=== PATIENT | male | born 1960 | race Two or more races ===

== ENCOUNTER 2025-02-05 10:15 | Inpatient (IN) | payer OTHER ==
[~2025-02-05] VITALS: Ht 170.2 cm; Wt 75.7 kg
[2025-02-05] MEDS ORDERED: LOSARTAN POTAS100 MG PO (11:35)
[2025-02-05] MEDS ORDERED: PRILOSEC OTC20 MG PO (11:36)
[2025-02-05] MEDS ORDERED: LEVOTHYROXINE25 MCG (11:36)
[2025-02-05] MEDS ORDERED: TOPROL XL100 M1 PO (11:37)
[2025-02-05] MEDS ORDERED: LIPITOR40 M1 PO (11:37)
[2025-02-05] MEDS ORDERED: PEPCID40 MG PO (11:38)
[2025-02-05] MEDS ORDERED: PROSCAR5 MG PO (11:38)
[2025-02-05] MEDS ORDERED: TAMS0.4C PO (11:38)
[2025-02-05] MEDS ORDERED: ONDANSETRON HCL 2 MG/ML VIAL ONE (12:19)
[2025-02-05] MEDS ORDERED: CEFTRIAXONE SODIUM 2,000 MG VIAL ONE (12:20)
[2025-02-05] MEDS ORDERED: ONDANSETRON HCL 2 MG/ML VIAL IV ONE (12:30)
[2025-02-05] MEDS ORDERED: CEFTRIAXONE SODIUM 2,000 MG VIAL IV ONE (12:30)
[2025-02-05] MEDS ORDERED: 0.9 % SODIUM CHLORIDE 1,000 ML IV SCH ×2 (12:30→21:45)
[2025-02-05 13:06] LABS: BASO % 0.3 % (0.1-1.2); EOS # 0.01 (0.04-0.54); EOS % 0.1 % (0.7-7.0); HEMOGLOBIN 9.7 g/dL (13.7-17.5); LYMPH # 1.14 (1.18-3.74); LYMPH % 7.6 % (19.3-53.1); MEAN CORPUSCULAR HEMOGLOBIN 25.6 pg (25.6-32.2); MONO # 1.03 (0.24-0.82); MONO % 6.9 % (4.7-12.5); NEUT # 12.64 (1.56-6.13); NEUT % 84.6 % (34.0-71.1); PLATELET COUNT 451 K/uL (163-369); RED BLOOD COUNT 3.79 M/uL (4.63-6.08); RED CELL DISTRIBUTION WIDTH 15.9 % (11.6-14.4)
[2025-02-05 14:08] LABS: ALBUMIN 3.2 gm/dL (3.4-5.0); BILIRUBIN TOTAL 0.72 mg/dL (0.3-1.2); CREATININE SERUM 1.91 mg/dL (0.70-1.30); GFR 35.43; GLOBULINA 4.6 G/DL (2.4-3.5); POTASSIUM 4.29 mEq/L (3.5-5.1); TOTAL PROTEIN 7.8 gm/dL (6.4-8.2)
[2025-02-05 16:21] LABS: PH,URINE 5.5 (5.0-8.0); URINE APPEARANCE Turbid; URINE BILIRRUBIN Negative (NEGATIVE); URINE BLOOD Large; URINE COLOR Dark Yellow; URINE GLUCOSE Negative (NEGATIVE); URINE KETONE Trace (NEGATIVE); URINE LEUKOCYTE Large; URINE NITRATE Negative
[2025-02-05 16:24] LABS: URINE CAST 11.34 uL (0.0-1.40); URINE EPITHELIAL CELLS 15.3 uL (0.0-38.8); URINE RBC 398.1 uL (0.0-20.8); URINE WBC 4451.3 uL (0.0-23.2)
[2025-02-05 18:05] LABS: URINE BACTERIA > 9821.5 uL (0.0-1933); URINE PROTEIN 100 (NEGATIVE)
[2025-02-05] MEDS ORDERED: CEFTRIAXONE SODIUM 2,000 MG in 0.9 % SODIUM CHLORIDE 100 ML IV SCH (21:59)
[2025-02-05] MEDS ORDERED: ONDANSETRON HCL 4 MG in 0.9 % SODIUM CHLORIDE 50 ML IV PRN (22:00)
[2025-02-05] MEDS ORDERED: ACETAMINOPHEN 500 MG GEL..CAP PO PRN (22:00)
[2025-02-05] MEDS ORDERED: 0.9 % SODIUM CHLORIDE 1,000 ML IV ONE (22:15)
[2025-02-06 04:00] VITALS: BP 112/65; O2SAT 98
[2025-02-06 04:49] LABS: PHOSPHOROUS 3.5 mg/dL (2.5-4.9)
[2025-02-06 04:52] LABS: C-REACTIVE PROTEIN 14.1 MG/DL (0.00-0.29); MAGNESIUM 1.4 mg/dL (1.8-2.4)
[2025-02-06 04:56] LABS: PARTIAL THROMBOPLASTIN TIME 28.8 SECONDS (22.0-34.0)
[2025-02-06 05:01] LABS: INR 1.05; PROTHROMBIN TIME 11.4 SECONDS (9.0-11.5)
[2025-02-06 05:29] LABS: COVID-19 AG NEGATIVE (NEGATIVE)
[2025-02-06] MEDS ORDERED: LEVOTHYROXINE SODIUM 25 MCG TABLET PO SCH (06:00)
[2025-02-06] MEDS ORDERED: TAMSULOSIN HCL 0.4 MG CAP PO SCH (09:00)
[2025-02-06] MEDS ORDERED: FINASTERIDE 5 MG TABLET PO SCH (09:00)
[2025-02-06] MEDS ORDERED: ATORVASTATIN CALCIUM 40 MG TABLET PO SCH (09:00)
[2025-02-06 09:41] VITALS: BP 125/90; O2SAT 98
[2025-02-06 17:48] VITALS: BP 142/79
[2025-02-07 01:28] VITALS: BP 111/62
[2025-02-07 07:22] LABS: ALBUMIN 2.9 gm/dL (3.4-5.0); BILIRUBIN TOTAL 0.5 mg/dL (0.3-1.2); CALCIUM 8.2 mg/dL (8.5-10.1); CREATININE SERUM 1.58 mg/dL (0.70-1.30); GFR 44.1; GLOBULINA 3.9 G/DL (2.4-3.5); POTASSIUM 4.35 mEq/L (3.5-5.1); TOTAL PROTEIN 6.8 gm/dL (6.4-8.2)
[2025-02-07 08:37] VITALS: BP 136/81; O2SAT 96
[2025-02-07] MEDS ORDERED: PROMETHAZINE HCL 25 MG/ML AMPUL IV PRN (14:15)
[2025-02-07] MEDS ORDERED: KETOROLAC TROMETHAMINE 30 MG VIAL IM PRN (14:15)
[2025-02-07] MEDS ORDERED: SIMETHICONE 125 MG CAPSULE PO PRN (14:15)
[2025-02-07] MEDS ORDERED: MORPHINE SULFATE 4 MG/ML CARTRIDGE IV PRN (14:30)
[2025-02-07] MEDS ORDERED: FAMOTIDINE/PF 20 MG in 0.9 % SODIUM CHLORIDE 100 ML IV SCH (17:00)
[2025-02-07 18:48] VITALS: BP 108/66
[2025-02-07 23:11] LABS: ALBUMIN 2.4 gm/dL (3.4-5.0); BILIRUBIN TOTAL 0.58 mg/dL (0.3-1.2); CALCIUM 7.8 mg/dL (8.5-10.1); CREATININE SERUM 1.89 mg/dL (0.70-1.30); GLOBULINA 3.4 G/DL (2.4-3.5); POTASSIUM 3.96 mEq/L (3.5-5.1); TOTAL PROTEIN 5.8 gm/dL (6.4-8.2)
[2025-02-07 23:15] LABS: GFR 35.86
[2025-02-08 01:10] VITALS: BP 96/62
[2025-02-08 08:33] LABS: BASO % 0.2 % (0.1-1.2); EOS # 0.05 (0.04-0.54); EOS % 0.5 % (0.7-7.0); HEMATOCRIT 29.1 % (40.1-51.0); HEMOGLOBIN 9.1 g/dL (13.7-17.5); LYMPH # 0.49 (1.18-3.74); LYMPH % 4.7 % (19.3-53.1); MEAN CORPUSCULAR HEMOGLOBIN 25.5 pg (25.6-32.2); MONO % 2.9 % (4.7-12.5); NEUT # 9.48 (1.56-6.13); NEUT % 91.1 % (34.0-71.1); PLATELET COUNT 305 K/uL (163-369); RED BLOOD COUNT 3.57 M/uL (4.63-6.08); RED CELL DISTRIBUTION WIDTH 16.4 % (11.6-14.4)
[2025-02-08 09:11] VITALS: BP 137/77; O2SAT 94
[2025-02-08 09:14] LABS: ALBUMIN 2.5 gm/dL (3.4-5.0); BILIRUBIN TOTAL 0.59 mg/dL (0.3-1.2); CALCIUM 7.9 mg/dL (8.5-10.1); CREATININE SERUM 2.08 mg/dL (0.70-1.30); GFR 32.11; GLOBULINA 3.4 G/DL (2.4-3.5); POTASSIUM 4.24 mEq/L (3.5-5.1); TOTAL PROTEIN 5.9 gm/dL (6.4-8.2)
[2025-02-08 09:18] LABS: PROSTATIC SPECIFIC ANTIGEN 5.62 NG/ML (0.010-4.00)
[2025-02-08] MEDS ORDERED: MEROPENEM 500 MG/VIAL VIAL IV SCH (13:00)
[2025-02-08 16:00] VITALS: BP 186/97; O2SAT 97
[2025-02-08 20:41] VITALS: BP 95/60
[2025-02-09 00:59] VITALS: BP 92/58
[2025-02-09 06:35] VITALS: BP 155/851; O2SAT 96
[2025-02-09 09:00] VITALS: BP 97/66; O2SAT 96
[2025-02-09 09:44] LABS: ALBUMIN 2.4 gm/dL (3.4-5.0); CALCIUM 7.6 mg/dL (8.5-10.1); CREATININE SERUM 2.39 mg/dL (0.70-1.30); GFR 27.35; POTASSIUM 4.41 mEq/L (3.5-5.1)
[2025-02-09 16:00] VITALS: BP 122/65; O2SAT 97
[2025-02-09 18:42] LABS: INFLUENZA A AG NEGATIVE (NEGATIVE); INFLUENZA B AG NEGATIVE (NEGATIVE)
[2025-02-10 01:25] VITALS: BP 125/87
[2025-02-10] MEDS ORDERED: ENOXAPARIN SODIUM 30 MG/0.3 ML SYRINGE SUBCUTANEO SCH (09:00)
[2025-02-10 09:12] VITALS: BP 136/89; O2SAT 97
[2025-02-10] MEDS ORDERED: MORPHINE SULFATE 4 MG/ML CARTRIDGE IV PRN (10:15)
[2025-02-10 10:53] LABS: BASO % 0.2 % (0.1-1.2); EOS # 0.08 (0.04-0.54); EOS % 0.4 % (0.7-7.0); HEMATOCRIT 27.8 % (40.1-51.0); LYMPH # 1.47 (1.18-3.74); MEAN CORPUSCULAR HEMOGLOBIN 25.2 pg (25.6-32.2); MONO # 1.18 (0.24-0.82); MONO % 6.4 % (4.7-12.5); NEUT # 15.43 (1.56-6.13); NEUT % 84.3 % (34.0-71.1); PLATELET COUNT 283 K/uL (163-369); RED BLOOD COUNT 3.45 M/uL (4.63-6.08); RED CELL DISTRIBUTION WIDTH 17.2 % (11.6-14.4)
[2025-02-10 10:56] LABS: HEMOGLOBIN 8.7 g/dL (13.7-17.5)
[2025-02-10 11:22] LABS: CALCIUM 8.2 mg/dL (8.5-10.1); CREATININE SERUM 2.08 mg/dL (0.70-1.30); GFR 32.11; POTASSIUM 4.41 mEq/L (3.5-5.1)
[2025-02-10 17:17] VITALS: BP 157/93; O2SAT 93
[2025-02-11 00:55] VITALS: BP 109/78; O2SAT 98
[2025-02-11 09:23] VITALS: BP 144/99; O2SAT 95
[2025-02-11] MEDS ORDERED: FAMOtidine 20 MG TABLET PO SCH (17:00)
[2025-02-11 17:56] VITALS: BP 155/93
[2025-02-12 03:00] VITALS: BP 132/89; O2SAT 95
[2025-02-12 08:00] VITALS: BP 170/94
[2025-02-12 10:31] LABS: CALCIUM 7.7 mg/dL (8.5-10.1); CREATININE SERUM 1.76 mg/dL (0.70-1.30); GFR 38.94; POTASSIUM 4.03 mEq/L (3.5-5.1)
[2025-02-12 10:36] LABS: BASO % 0.3 % (0.1-1.2); EOS # 0.18 (0.04-0.54); EOS % 1.4 % (0.7-7.0); LYMPH % 9.4 % (19.3-53.1); MEAN CORPUSCULAR HEMOGLOBIN 25.4 pg (25.6-32.2); MONO # 1.01 (0.24-0.82); MONO % 7.9 % (4.7-12.5); NEUT # 10.01 (1.56-6.13); NEUT % 78.9 % (34.0-71.1); PLATELET COUNT 305 K/uL (163-369); RED BLOOD COUNT 3.03 M/uL (4.63-6.08); RED CELL DISTRIBUTION WIDTH 17.4 % (11.6-14.4)
[2025-02-12 11:03] LABS: HEMATOCRIT 24.3 % (40.1-51.0)
[2025-02-12 11:04] LABS: HEMOGLOBIN 7.7 g/dL (13.7-17.5)
[2025-02-12] MEDS ORDERED: SODIUM CHLORIDE 0.45 % 1,000 ML IV SCH (15:15)
[2025-02-12 19:07] VITALS: BP 170/92
[2025-02-13 03:54] VITALS: BP 148/87
[2025-02-13 08:46] VITALS: BP 163/100; O2SAT 98
[2025-02-13 10:14] LABS: BASO % 0.4 % (0.1-1.2); EOS # 0.32 (0.04-0.54); EOS % 2.4 % (0.7-7.0); HEMATOCRIT 28.5 % (40.1-51.0); HEMOGLOBIN 9.1 g/dL (13.7-17.5); LYMPH # 1.96 (1.18-3.74); LYMPH % 14.7 % (19.3-53.1); MEAN CORPUSCULAR HEMOGLOBIN 26.1 pg (25.6-32.2); MONO # 1.33 (0.24-0.82); NEUT # 9.28 (1.56-6.13); NEUT % 69.8 % (34.0-71.1); PLATELET COUNT 386 K/uL (163-369); RED BLOOD COUNT 3.49 M/uL (4.63-6.08)
[2025-02-13] MEDS ORDERED: IOVERSOL 320 MG/ML - 50 ML VIAL IV ONE (13:01)
[2025-02-13] MEDS ORDERED: CHLORHEXIDINE GLUCONATE 120 ML BOTTLE TOP ONE (13:03)
[2025-02-13] MEDS ORDERED: hydrALAZINE HCL 20 MG VIAL ONE (14:02)
[2025-02-13 18:51] VITALS: BP 136/84; O2SAT 97
[2025-02-14] VITALS: BP 120/77; O2SAT 95
[2025-02-14 08:10] VITALS: BP 153/84
[2025-02-14 20:30] LABS: ob NEGATIVE (NEGATIVE)
[2025-02-15 02:56] VITALS: BP 143/80; O2SAT 97
[2025-02-15 08:01] VITALS: BP 164/86
[2025-02-15 18:20] VITALS: BP 153/101; O2SAT 98
[2025-02-15] MEDS ORDERED: HYDROCHLOROTHIAZIDE 12.5 MG CAPSULE PO STA (18:43)
[2025-02-15] MEDS ORDERED: HYDROCHLOROTHIAZIDE 12.5 MG CAPSULE PO ONE (18:44)
[2025-02-15] MEDS ORDERED: LOSARTAN POTASSIUM 50 MG TABLET PO ONE (18:44)
[2025-02-15] MEDS ORDERED: LOSARTAN POTASSIUM 100 MG TABLET PO SCH (18:45)
[2025-02-15] MEDS ORDERED: METOPROLOL SUCCINATE 100 MG TAB.SR.24H PO SCH (21:00)
[2025-02-15 22:47] VITALS: BP 150/80
[2025-02-16 01:40] VITALS: BP 152/81; O2SAT 98
[2025-02-16] MEDS ORDERED: HYDROCHLOROTHIAZIDE 12.5 MG CAPSULE PO SCH (09:00)
[2025-02-16 09:01] VITALS: BP 157/93
[2025-02-16 17:00] VITALS: BP 157/92; O2SAT 97
[2025-02-17 01:51] VITALS: BP 123/70; O2SAT 98
[2025-02-17 09:10] VITALS: BP 162/98; O2SAT 97
[2025-02-17 13:21] LABS: BASO % 0.4 % (0.1-1.2); EOS # 0.29 (0.04-0.54); EOS % 3.8 % (0.7-7.0); HEMATOCRIT 32.7 % (40.1-51.0); HEMOGLOBIN 10.3 g/dL (13.7-17.5); LYMPH # 1.79 (1.18-3.74); LYMPH % 23.2 % (19.3-53.1); MONO # 0.57 (0.24-0.82); MONO % 7.4 % (4.7-12.5); NEUT # 4.94 (1.56-6.13); PLATELET COUNT 633 K/uL (163-369); RED BLOOD COUNT 3.96 M/uL (4.63-6.08); RED CELL DISTRIBUTION WIDTH 16.9 % (11.6-14.4)
[2025-02-17 13:59] LABS: ALBUMIN 2.6 gm/dL (3.4-5.0); BILIRUBIN TOTAL 0.41 mg/dL (0.3-1.2); CALCIUM 8.1 mg/dL (8.5-10.1); CREATININE SERUM 0.96 mg/dL (0.70-1.30); GFR 78.37; GLOBULINA 3.9 G/DL (2.4-3.5); POTASSIUM 4.06 mEq/L (3.5-5.1); TOTAL PROTEIN 6.5 gm/dL (6.4-8.2)
[2025-02-17 16:50] VITALS: BP 134/77; O2SAT 95
[2025-02-18 00:56] VITALS: BP 149/83
[2025-02-18 09:15] VITALS: BP 132/99; O2SAT 97
== END 2025-02-18 13:13 | disposition home or self-care (01) | DRG 660 ==
LOC: ER 10:48 → SEC-K 22:20 → MEDJ 22:20
PROVIDERS: General Practice; Internal Medicine; Internal Medicine Nephrology; Student in an Organized Health Care Education/Training Program; Urology; ADMIT Student in an Organized Health Care Education/Training Program; ATTEND Student in an Organized Health Care Education/Training Program
PROC: BW21ZZZ Computerized Tomography (CT Scan) of Abdomen and Pelvis (ICD-10-PCS; 2025-02-05)
PROC: 8E0ZXY6 Isolation (ICD-10-PCS; 2025-02-08)
PROC: BW21ZZZ Computerized Tomography (CT Scan) of Abdomen and Pelvis (ICD-10-PCS; 2025-02-12)
PROC: 30233N1 Transfusion of Nonautologous Red Blood Cells into Peripheral Vein, Percutaneous Approach (ICD-10-PCS; 2025-02-13)
PROC: 0T778DZ Dilation of Left Ureter with Intraluminal Device, Via Natural or Artificial Opening Endoscopic (ICD-10-PCS; principal; 2025-02-13 16:00)
DX: N13.2 Hydronephrosis with renal and ureteral calculous obstruction (principal); C64.9 Malignant neoplasm of unspecified kidney, except renal pelvis; N39.0 Urinary tract infection, site not specified; D64.89 Other specified anemias; I10 Essential (primary) hypertension; E03.9 Hypothyroidism, unspecified; B96.20 Unspecified Escherichia coli [E. coli] as the cause of diseases classified elsewhere

== ENCOUNTER 2025-03-06 18:32 | Inpatient (IN) | payer OTHER ==
[~2025-03-06] VITALS: Ht 170.2 cm; Wt 74.8 kg
[~2025-03-06 18:32] MED LIST: LEVOTHYROXINE25 MCG; LIPITOR40 M1 PO; LOSARTAN POTAS100 MG PO; PEPCID40 MG PO; PRILOSEC OTC20 MG PO; PROSCAR5 MG PO; TAMS0.4C PO; TOPROL XL100 M1 PO
[2025-03-06] MEDS ORDERED: KETOROLAC TROMETHAMINE 30 MG VIAL IV ONE (19:30)
[2025-03-06] MEDS ORDERED: CEFTRIAXONE SODIUM 1,000 MG VIAL IV ONE (19:30)
[2025-03-06] MEDS ORDERED: 0.9 % SODIUM CHLORIDE 1,000 ML IV ONE ×2 (19:30→22:00)
[2025-03-06] MEDS ORDERED: KETOROLAC TROMETHAMINE 30 MG VIAL ONE (20:02)
[2025-03-06] MEDS ORDERED: CEFTRIAXONE SODIUM 1,000 MG VIAL ONE (20:03)
[2025-03-06 20:05] LABS: BASO % 0.3 % (0.1-1.2); EOS # 0.01 (0.04-0.54); HEMATOCRIT 38.5 % (40.1-51.0); HEMOGLOBIN 12.3 g/dL (13.7-17.5); LYMPH # 1.57 (1.18-3.74); LYMPH % 6.3 % (19.3-53.1); MEAN CORPUSCULAR HEMOGLOBIN 26.1 pg (25.6-32.2); MONO # 1.74 (0.24-0.82); NEUT # 21.26 (1.56-6.13); PLATELET COUNT 254 K/uL (163-369); RED BLOOD COUNT 4.71 M/uL (4.63-6.08); RED CELL DISTRIBUTION WIDTH 17.2 % (11.6-14.4)
[2025-03-06 20:24] LABS: INR 1.21; PARTIAL THROMBOPLASTIN TIME 30.2 SECONDS (22.0-34.0)
[2025-03-06 20:34] LABS: ALBUMIN 3.2 gm/dL (3.4-5.0); BILIRUBIN TOTAL 1.8 mg/dL (0.3-1.2); CALCIUM 9.3 mg/dL (8.5-10.1); GFR 33.59; GLOBULINA 4.9 G/DL (2.4-3.5); POTASSIUM 4.46 mEq/L (3.5-5.1); TOTAL PROTEIN 8.1 gm/dL (6.4-8.2)
[2025-03-06 20:44] LABS: C-REACTIVE PROTEIN 28.3 MG/DL (0.00-0.29)
[2025-03-06 20:53] LABS: ERYTHROCYTE SEDIMENTATION RATE 128 mm/hr (0-20)
[2025-03-06] MEDS ORDERED: MEROPENEM 500 MG/VIAL VIAL IV SCH (21:58)
[2025-03-06] MEDS ORDERED: ACETAMINOPHEN 500 MG GEL..CAP PO PRN (22:00)
[2025-03-06] MEDS ORDERED: 0.9 % SODIUM CHLORIDE 1,000 ML IV SCH (22:00)
[2025-03-06] MEDS ORDERED: FAMOTIDINE/PF 20 MG in 0.9 % SODIUM CHLORIDE 8 ML IV PUSH SCH (22:02)
[2025-03-07 03:30] LABS: URINE APPEARANCE Turbid; URINE BILIRRUBIN Negative (NEGATIVE); URINE BLOOD Large; URINE COLOR Dark Yellow; URINE GLUCOSE Negative (NEGATIVE); URINE KETONE Trace (NEGATIVE); URINE LEUKOCYTE Large; URINE NITRATE Positive
[2025-03-07 03:31] LABS: URINE CAST 8.54 uL (0.0-1.40); URINE EPITHELIAL CELLS 14.5 uL (0.0-38.8); URINE RBC 109.3 uL (0.0-20.8)
[2025-03-07 03:56] LABS: URINE BACTERIA > 9821.5 uL (0.0-1933); URINE PROTEIN 100 (NEGATIVE)
[2025-03-07 06:00] VITALS: BP 118/74; O2SAT 96
[2025-03-07] MEDS ORDERED: LEVOTHYROXINE SODIUM 25 MCG TABLET PO SCH (06:00)
[2025-03-07 08:57] VITALS: BP 104/72; O2SAT 96
[2025-03-07] MEDS ORDERED: CEFTRIAXONE SODIUM 2,000 MG in 0.9 % SODIUM CHLORIDE 100 ML IV SCH (09:00)
[2025-03-07] MEDS ORDERED: ATORVASTATIN CALCIUM 40 MG TABLET PO SCH (09:00)
[2025-03-07] MEDS ORDERED: ENOXAPARIN SODIUM 30 MG/0.3 ML SYRINGE SUBCUTANEO SCH (09:00)
[2025-03-07] MEDS ORDERED: FINASTERIDE 5 MG TABLET PO SCH (09:00)
[2025-03-07] MEDS ORDERED: MORPHINE SULFATE 2 MG/ML CARTRIDGE IV PRN (09:15)
[2025-03-07 17:14] VITALS: BP 98/54; O2SAT 93
[2025-03-08] VITALS: BP 115/75; O2SAT 99
[2025-03-08] MEDS ORDERED: PHENAZOPYRIDINE HCL 100 MG TABLET PO SCH (00:08)
[2025-03-08 07:31] LABS: BASO % 0.2 % (0.1-1.2); EOS # 0.15 (0.04-0.54); EOS % 0.7 % (0.7-7.0); HEMATOCRIT 31.6 % (40.1-51.0); HEMOGLOBIN 10.1 g/dL (13.7-17.5); LYMPH # 1.46 (1.18-3.74); LYMPH % 6.7 % (19.3-53.1); MEAN CORPUSCULAR HEMOGLOBIN 25.8 pg (25.6-32.2); MONO # 1.49 (0.24-0.82); MONO % 6.8 % (4.7-12.5); NEUT # 18.38 (1.56-6.13); PLATELET COUNT 228 K/uL (163-369); RED BLOOD COUNT 3.92 M/uL (4.63-6.08); RED CELL DISTRIBUTION WIDTH 17.5 % (11.6-14.4)
[2025-03-08 07:48] LABS: ALBUMIN 2.4 gm/dL (3.4-5.0); BILIRUBIN TOTAL 0.54 mg/dL (0.3-1.2); CALCIUM 8.2 mg/dL (8.5-10.1); CREATININE SERUM 1.27 mg/dL (0.70-1.30); GFR 56.74; GLOBULINA 3.3 G/DL (2.4-3.5); POTASSIUM 4.14 mEq/L (3.5-5.1); TOTAL PROTEIN 5.7 gm/dL (6.4-8.2)
[2025-03-08 08:57] VITALS: BP 132/84
[2025-03-08] MEDS ORDERED: FAMOtidine 20 MG TABLET PO SCH (09:00)
[2025-03-08 17:05] VITALS: BP 120/77; O2SAT 94
[2025-03-09] VITALS: BP 143/87; O2SAT 96
[2025-03-09 08:45] VITALS: BP 163/91
[2025-03-09] MEDS ORDERED: PHENOL 177 ML BOTTLE MM SCH (17:00)
[2025-03-09 17:03] VITALS: BP 147/98; O2SAT 97
[2025-03-10] VITALS: BP 127/65; O2SAT 96
[2025-03-10 07:00] VITALS: BP 159/97; O2SAT 96
[2025-03-10 16:42] LABS: BASO % 0.4 % (0.1-1.2); EOS # 0.34 (0.04-0.54); EOS % 4.8 % (0.7-7.0); HEMOGLOBIN 9.8 g/dL (13.7-17.5); LYMPH # 1.86 (1.18-3.74); LYMPH % 26.1 % (19.3-53.1); MEAN CORPUSCULAR HEMOGLOBIN 25.3 pg (25.6-32.2); MONO # 0.79 (0.24-0.82); MONO % 11.1 % (4.7-12.5); NEUT % 55.9 % (34.0-71.1); PLATELET COUNT 265 K/uL (163-369); RED BLOOD COUNT 3.88 M/uL (4.63-6.08); RED CELL DISTRIBUTION WIDTH 17.7 % (11.6-14.4)
[2025-03-10 16:43] VITALS: BP 160/92; O2SAT 97
[2025-03-10 17:00] LABS: ALBUMIN 2.7 gm/dL (3.4-5.0); BILIRUBIN TOTAL 0.49 mg/dL (0.3-1.2); CALCIUM 8.8 mg/dL (8.5-10.1); CREATININE SERUM 1.1 mg/dL (0.70-1.30); GFR 66.97; GLOBULINA 3.8 G/DL (2.4-3.5); POTASSIUM 4.04 mEq/L (3.5-5.1); TOTAL PROTEIN 6.5 gm/dL (6.4-8.2)
[2025-03-11 00:20] VITALS: BP 184/110; O2SAT 93
[2025-03-11] MEDS ORDERED: hydrALAZINE HCL 20 MG VIAL IV PRN (06:45)
[2025-03-11 07:00] VITALS: BP 134/83; O2SAT 96
[2025-03-11] MEDS ORDERED: METOPROLOL SUCCINATE 50 MG TAB.SR.24H PO SCH (09:00)
[2025-03-11 17:15] VITALS: BP 121/75; O2SAT 94
[2025-03-12 01:24] VITALS: BP 168/100; O2SAT 96
[2025-03-12 09:41] VITALS: BP 142/70; O2SAT 99
== END 2025-03-12 10:50 | disposition home or self-care (01) | DRG 872 ==
LOC: ER 18:37 → SEC-K 22:30 → MEDI 22:30
PROVIDERS: General Practice; Internal Medicine; ADMIT Student in an Organized Health Care Education/Training Program; ATTEND Student in an Organized Health Care Education/Training Program
PROC: BW21ZZZ Computerized Tomography (CT Scan) of Abdomen and Pelvis (ICD-10-PCS; 2025-03-06)
PROC: 0T9B70Z Drainage of Bladder with Drainage Device, Via Natural or Artificial Opening (ICD-10-PCS; principal; 2025-03-07)
PROC: 8E0ZXY6 Isolation (ICD-10-PCS; 2025-03-09)
DX: A41.51 Sepsis due to Escherichia coli [E. coli] (principal); T83.593A Infection and inflammatory reaction due to other urinary stents, initial encounter; N17.9 Acute kidney failure, unspecified; N40.1 Benign prostatic hyperplasia with lower urinary tract symptoms; R33.8 Other retention of urine; I12.9 Hypertensive chronic kidney disease with stage 1 through stage 4 chronic kidney disease, or unspecified chronic kidney disease; N18.9 Chronic kidney disease, unspecified; E03.9 Hypothyroidism, unspecified; E78.5 Hyperlipidemia, unspecified; Y73.1 Therapeutic (nonsurgical) and rehabilitative gastroenterology and urology devices associated with adverse incidents

== ENCOUNTER 2025-04-01 15:02 | Inpatient (IN) | payer OTHER ==
[~2025-04-01] VITALS: Ht 170.2 cm; Wt 74.8 kg
[2025-04-01] MEDS ORDERED: FAMOTIDINE/PF 20 MG/2 ML VIAL IV ONE (17:00)
[2025-04-01] MEDS ORDERED: KETOROLAC TROMETHAMINE 30 MG VIAL IV ONE (17:00)
[2025-04-01] MEDS ORDERED: ONDANSETRON HCL 2 MG/ML VIAL IV ONE (17:00)
[2025-04-01 18:11] LABS: BASO % 0.3 % (0.1-1.2); EOS # 0.09 (0.04-0.54); EOS % 0.6 % (0.7-7.0); LYMPH # 1.40 (1.18-3.74); LYMPH % 9.5 % (19.3-53.1); MEAN PLATELET VOLUME 10.00 fl (9.4-12.4); MONO # 1.06 (0.24-0.82); MONO % 7.2 % (4.7-12.5); NEUT # 12.02 (1.56-6.13); NEUT % 82.0 % (34.0-71.1); RED CELL DISTRIBUTION WIDTH 16.5 % (11.6-14.4)
[2025-04-01 18:23] LABS: URINE APPEARANCE Turbid; URINE BILIRRUBIN Negative (NEGATIVE); URINE BLOOD Large; URINE COLOR Yellow; URINE GLUCOSE Negative (NEGATIVE); URINE KETONE Trace (NEGATIVE); URINE LEUKOCYTE Large; URINE NITRATE Negative; URINE UROBILINOGEN 0.2 E.U./dl
[2025-04-01 18:24] LABS: URINE CAST 3.66 uL (0.0-1.40); URINE EPITHELIAL CELLS 18.3 uL (0.0-38.8); URINE RBC 183.1 uL (0.0-20.8)
[2025-04-01 18:32] LABS: INR 1.05
[2025-04-01 18:34] LABS: URINE BACTERIA > 9821.5 uL (0.0-1933); URINE PROTEIN 100 (NEGATIVE); URINE WBC > 5548.3 uL (0.0-23.2)
[2025-04-01 18:39] LABS: ALT/SGPT 32.0 U/L (12-78); AST/SGOT 15.0 U/L (15-37); BILIRUBIN TOTAL 1.26 mg/dL (0.3-1.2); BUN CREA RATIO 13.0 (7.0-25.0); CREATININE SERUM 1.72 mg/dL (0.70-1.30); GFR 39.98; GLOBULINA 4.0 G/DL (2.4-3.5); GLUCOSE FASTING 131.0 mg/dL (65-100); OSMOLALITY SERUM 283.0 MOSM/KG (275-295)
[2025-04-01 18:40] LABS: URINE CRYSTALS MODERATE /HPF; URINE MUCUS SCANT
[2025-04-01 18:42] LABS: COVID-19 AG NEGATIVE (NEGATIVE)
[2025-04-01] MEDS ORDERED: 0.9 % SODIUM CHLORIDE 1,000 ML IV ONE (20:00)
[2025-04-01] MEDS ORDERED: CEFTRIAXONE SODIUM 1,000 MG VIAL IV ONE (20:00)
[2025-04-01] MEDS ORDERED: 0.9 % SODIUM CHLORIDE 1,000 ML IV SCH (23:15)
[2025-04-01] MEDS ORDERED: ACETAMINOPHEN 500 MG GEL..CAP PO PRN (23:15)
[2025-04-02] MEDS ORDERED: MEROPENEM 500 MG/VIAL VIAL IV SCH (01:00)
[2025-04-02 01:49] VITALS: BP 158/86
[2025-04-02 03:20] VITALS: BP 124/86; O2SAT 96
[2025-04-02] MEDS ORDERED: LEVOTHYROXINE SODIUM 25 MCG TABLET PO SCH (06:00)
[2025-04-02 08:58] VITALS: BP 180/98; O2SAT 98
[2025-04-02] MEDS ORDERED: FINASTERIDE 5 MG TABLET PO SCH ×2 (09:00)
[2025-04-02] MEDS ORDERED: FAMOTIDINE/PF 20 MG in 0.9 % SODIUM CHLORIDE 8 ML IV PUSH SCH (09:00)
[2025-04-02] MEDS ORDERED: LOSARTAN POTASSIUM 50 MG TABLET PO SCH (09:00)
[2025-04-02] MEDS ORDERED: TAMSULOSIN HCL 0.4 MG CAP PO SCH (09:00)
[2025-04-02] MEDS ORDERED: METOPROLOL SUCCINATE 100 MG TAB.SR.24H PO SCH (09:00)
[2025-04-02 17:42] VITALS: BP 115/72; O2SAT 95
[2025-04-03 02:37] VITALS: BP 98/60; O2SAT 97
[2025-04-03 07:00] VITALS: BP 95/69; O2SAT 96
[2025-04-03 12:28] LABS: BASO % 0.2 % (0.1-1.2); EOS # 0.13 (0.04-0.54); EOS % 1.0 % (0.7-7.0); LYMPH # 1.37 (1.18-3.74); LYMPH % 10.4 % (19.3-53.1); MEAN PLATELET VOLUME 10.90 fl (9.4-12.4); MONO # 1.10 (0.24-0.82); MONO % 8.3 % (4.7-12.5); NEUT # 10.51 (1.56-6.13); NEUT % 79.6 % (34.0-71.1); RED CELL DISTRIBUTION WIDTH 16.8 % (11.6-14.4)
[2025-04-03 13:01] LABS: BUN CREA RATIO 15.0 (7.0-25.0); CREATININE SERUM 1.42 mg/dL (0.70-1.30); GFR 49.88; OSMOLALITY SERUM 289.0 MOSM/KG (275-295)
[2025-04-03 13:06] LABS: GLUCOSE FASTING 247.0 mg/dL (65-100)
[2025-04-03 17:27] VITALS: BP 99/68
[2025-04-04 02:33] VITALS: BP 116/66; O2SAT 95
[2025-04-04 09:11] LABS: % FREE PSA 26.6 % (.)
[2025-04-04 09:38] VITALS: BP 143/82
[2025-04-04 17:28] VITALS: BP 152/85; O2SAT 97
[2025-04-05 01:33] VITALS: BP 142/78; O2SAT 100
[2025-04-05 08:00] VITALS: BP 157/95; O2SAT 97
[2025-04-05 18:41] VITALS: BP 177/102; O2SAT 98
[2025-04-05 20:55] VITALS: BP 160/100
[2025-04-06 01:38] VITALS: BP 138/77; O2SAT 99
[2025-04-06] MEDS ORDERED: SODIUM CHLORIDE 0.45 % 1,000 ML IV SCH (07:15)
[2025-04-06 10:00] VITALS: BP 148/95; O2SAT 98
[2025-04-06 17:25] VITALS: BP 158/91; O2SAT 98
[2025-04-07 00:40] VITALS: BP 179/100; O2SAT 96
[2025-04-07 09:39] VITALS: BP 162/86; O2SAT 96
[2025-04-07 13:04] LABS: BASO % 0.7 % (0.1-1.2); EOS # 0.41 (0.04-0.54); EOS % 5.4 % (0.7-7.0); LYMPH # 1.66 (1.18-3.74); LYMPH % 21.8 % (19.3-53.1); MEAN PLATELET VOLUME 10.50 fl (9.4-12.4); MONO # 0.57 (0.24-0.82); MONO % 7.5 % (4.7-12.5); NEUT # 4.80 (1.56-6.13); NEUT % 62.9 % (34.0-71.1); RED CELL DISTRIBUTION WIDTH 16.6 % (11.6-14.4)
[2025-04-07 13:25] LABS: INR 1.05
[2025-04-07 13:53] LABS: BUN CREA RATIO 10.0 (7.0-25.0); CREATININE SERUM 1.08 mg/dL (0.70-1.30); GFR 68.41; GLUCOSE FASTING 186.0 mg/dL (65-100); OSMOLALITY SERUM 291.0 MOSM/KG (275-295)
[2025-04-07 17:37] VITALS: BP 157/100; O2SAT 98
[2025-04-07] MEDS ORDERED: MEROPENEM 500 MG/VIAL VIAL IV SCH (18:00)
[2025-04-07 22:02] VITALS: BP 130/80
[2025-04-08 01:24] VITALS: BP 125/78; O2SAT 96
[2025-04-08 09:21] VITALS: BP 154/77; O2SAT 97
[2025-04-08 17:04] VITALS: BP 148/83; O2SAT 98
[2025-04-09 01:29] VITALS: BP 145/90; O2SAT 95
[2025-04-09 09:11] VITALS: BP 160/96; O2SAT 97
[2025-04-09] MEDS ORDERED: CHLORHEXIDINE GLUCONATE 120 ML BOTTLE TOP ONE (18:00)
[2025-04-09] MEDS ORDERED: hydrALAZINE HCL 20 MG VIAL IV ONE (19:00)
[2025-04-09] MEDS ORDERED: ENALAPRILAT DIHYDRATE 1.25 MG/ML VIAL IV PRN (20:00)
[2025-04-09 21:47] VITALS: BP 158/84; O2SAT 97
[2025-04-09] MEDS ORDERED: FAMOTIDINE/PF 20 MG in 0.9 % SODIUM CHLORIDE 8 ML IV PUSH SCH (22:15)
[2025-04-10 01:55] VITALS: BP 100/54; O2SAT 98
[2025-04-10 08:00] VITALS: BP 120/55; O2SAT 96
[2025-04-10] MEDS ORDERED: MORPHINE SULFATE 2 MG/ML CARTRIDGE IV STA (08:34)
[2025-04-10] MEDS ORDERED: MORPHINE SULFATE 2 MG/ML CARTRIDGE IV PRN (08:45)
[2025-04-10 17:52] VITALS: BP 118/70
[2025-04-11 02:04] VITALS: BP 155/85; O2SAT 97
[2025-04-11 09:02] VITALS: BP 172/84; O2SAT 97
[2025-04-11 13:26] VITALS: BP 153/100
[2025-04-11 14:13] LABS: ALT/SGPT 18.0 U/L (12-78); AST/SGOT 6.0 U/L (15-37); BILIRUBIN TOTAL 0.52 mg/dL (0.3-1.2); BUN CREA RATIO 9.0 (7.0-25.0); CREATININE SERUM 0.91 mg/dL (0.70-1.30); GFR 83.36; GLOBULINA 3.2 G/DL (2.4-3.5); GLUCOSE FASTING 79.0 mg/dL (65-100); OSMOLALITY SERUM 282.0 MOSM/KG (275-295)
[2025-04-11 18:44] VITALS: BP 122/84; O2SAT 97
[2025-04-12 03:13] VITALS: BP 192/83; O2SAT 95
[2025-04-12 07:35] LABS: ALT/SGPT 19.0 U/L (12-78); AST/SGOT 9.0 U/L (15-37); BILIRUBIN TOTAL 0.45 mg/dL (0.3-1.2); BUN CREA RATIO 12.0 (7.0-25.0); CREATININE SERUM 0.92 mg/dL (0.70-1.30); GFR 82.31; GLOBULINA 3.3 G/DL (2.4-3.5); GLUCOSE FASTING 94.0 mg/dL (65-100); OSMOLALITY SERUM 290.0 MOSM/KG (275-295)
[2025-04-12 09:10] VITALS: BP 166/92; O2SAT 96
[2025-04-14 12:55] VITALS: BP 127/86
== END 2025-04-12 15:29 | disposition home or self-care (01) | DRG 668 ==
LOC: ER 15:02 → MEDI 23:08 → SEC-K 23:08 → MEDI 04-02 01:46
PROVIDERS: General Practice; Internal Medicine; Internal Medicine Infectious Disease; Urology; ADMIT Student in an Organized Health Care Education/Training Program; ATTEND Student in an Organized Health Care Education/Training Program
PROC: BW21ZZZ Computerized Tomography (CT Scan) of Abdomen and Pelvis (ICD-10-PCS; 2025-04-01)
PROC: 0T777DZ Dilation of Left Ureter with Intraluminal Device, Via Natural or Artificial Opening (ICD-10-PCS; 2025-04-09)
PROC: 0TP98DZ Removal of Intraluminal Device from Ureter, Via Natural or Artificial Opening Endoscopic (ICD-10-PCS; 2025-04-09)
PROC: 0TC77ZZ Extirpation of Matter from Left Ureter, Via Natural or Artificial Opening (ICD-10-PCS; principal; 2025-04-09 15:00)
PROC: BW21ZZZ Computerized Tomography (CT Scan) of Abdomen and Pelvis (ICD-10-PCS; 2025-04-10)
DX: N39.0 Urinary tract infection, site not specified (principal); A41.9 Sepsis, unspecified organism; N17.9 Acute kidney failure, unspecified; N20.1 Calculus of ureter; Z16.12 Extended spectrum beta lactamase (ESBL) resistance; Z16.24 Resistance to multiple antibiotics; B96.20 Unspecified Escherichia coli [E. coli] as the cause of diseases classified elsewhere; E03.9 Hypothyroidism, unspecified; E78.5 Hyperlipidemia, unspecified; I12.9 Hypertensive chronic kidney disease with stage 1 through stage 4 chronic kidney disease, or unspecified chronic kidney disease; N18.9 Chronic kidney disease, unspecified